=== PATIENT | female | born 1985 | race Hispanic/Latino ===

== ENCOUNTER 2018-05-15 17:20 | Emergency (ER) | payer SELFPAY ==
[~2018-05-15 17:20] MED LIST: ACET1TAB12 PO; BISA-72 PO; DULO30CA51 PO; GABA-529 PO; LEVO200T5 PO; LINA5TAB PO; METF750T2 PO; MIRALAX PO; NAPR-1192 PO; PRED20TA3 PO
[2018-05-15 18:18] LABS: BASOPHILS % (AUTO) 0.7 % (0.0-5.0); EOSINOPHILS % (AUTO) 3.1 % (0.0-8.0); HEMATOCRIT 41.5 % (36-48); LYMPHOCYTES % (AUTO) 24.8 % (21.0-51.0); MEAN CORPUSCULAR HEMOGLOBIN 30.2 pg (27.0-33.0); MEAN CORPUSCULAR HGB CONC 33.8 g/dL (32.0-36.0); MEAN CORPUSCULAR VOLUME 89.4 fL (79-99); MONOCYTES % (AUTO) 5.5 % (3.0-13.0); NEUTROPHILS % (AUTO) 65.9 % (40.0-77.0); PLATELET COUNT (AUTO) 234 K/uL (130-400); RED BLOOD CELL COUNT(AUTO) 4.64 MIL/uL (4.00-5.50); WHITE BLOOD COUNT (AUTO) 7.5 K/uL (4.8-10.8)
== END 2018-05-15 19:21 | disposition home or self-care (01) ==
LOC: EDH 17:20
DX: N93.8 Other specified abnormal uterine and vaginal bleeding (principal); E11.9 Type 2 diabetes mellitus without complications; Z85.850 Personal history of malignant neoplasm of thyroid; Z98.51 Tubal ligation status; Z72.0 Tobacco use
CPT/HCPCS: 36415; 84702; 85025; 86850; 86900; 86901

== ENCOUNTER 2018-08-21 22:38 | Emergency (ER) | payer OTHER ==
[2018-08-21 23:02] LABS: BASOPHILS % (AUTO) 3.7 % (0.0-5.0); EOSINOPHILS % (AUTO) 3.5 % (0.0-8.0); HEMATOCRIT 40.4 % (36-48); LYMPHOCYTES % (AUTO) 21.7 % (21.0-51.0); MEAN CORPUSCULAR HEMOGLOBIN 30.8 pg (27.0-33.0); MEAN CORPUSCULAR HGB CONC 34.2 g/dL (32.0-36.0); MEAN CORPUSCULAR VOLUME 89.9 fL (79-99); MONOCYTES % (AUTO) 4.9 % (3.0-13.0); NEUTROPHILS % (AUTO) 66.2 % (40.0-77.0); PLATELET COUNT (AUTO) 231 K/uL (130-400); RED BLOOD CELL COUNT(AUTO) 4.49 MIL/uL (4.00-5.50); RED CELL DISTRIBUTION WIDTH 14.2 % (11.0-15.5); WHITE BLOOD COUNT (AUTO) 7.1 K/uL (4.8-10.8)
[2018-08-21 23:19] LABS: B-TYPE NATRIURETIC PEPTIDE < 5 pg/mL (0-100)
[2018-08-21 23:23] LABS: ALBUMIN 4.1 g/dL (3.5-5.0); BILIRUBIN,TOTAL 0.4 mg/dL (0.2-1.0); TOTAL PROTEIN, SERUM 8.2 g/dL (6.0-8.3)
[2018-08-22 00:05] LABS: AMPHET/METH SCREEN,URINE NEGATIVE (NEGATIVE); BARBITURATE SCREEN, URINE NEGATIVE (NEGATIVE); BENZODIAZEPINES SCREEN,URINE NEGATIVE (NEGATIVE); CANNABINOID SCREEN,URINE POSITIVE (NEGATIVE); COCAINE SCREEN,URINE NEGATIVE (NEGATIVE); OPIATE SCREEN,URINE NEGATIVE (NEGATIVE); PHENCYCLIDINE SCREEN,URINE NEGATIVE (NEGATIVE)
== END 2018-08-22 01:35 | disposition home or self-care (01) ==
LOC: EDH 22:38
DX: R07.89 Other chest pain (principal); E11.9 Type 2 diabetes mellitus without complications; Z90.49 Acquired absence of other specified parts of digestive tract; Z98.890 Other specified postprocedural states; Z85.850 Personal history of malignant neoplasm of thyroid; Z72.0 Tobacco use
CPT/HCPCS: 36415; 71045; 80053; 80305; 82550; 83880; 84484; 85025; 93005

== ENCOUNTER 2019-01-01 20:57 | Emergency (ER) | payer SELFPAY ==
[~2019-01-01 20:57] MED LIST changes: -DULO30CA51 PO; +DULO30CA52 PO; -METF750T2 PO; +METF750T46 PO
[2019-01-01 21:39] LABS: APPEARANCE,URINE Clear (CLEAR); BILIRUBIN,URINE Negative (NEGATIVE); COLOR,URINE Yellow (YELLOW); GLUCOSE, URINE (UA) >=1000 mg/dL (NEGATIVE); KETONES,URINE Negative (NEGATIVE); LEUKOCYTE ESTERASE ,URINE Negative (NEGATIVE); NITRATE,URINE Negative (NEGATIVE); OCCULT BLOOD,URINE Nonhemolyzed Trace (NEGATIVE); PROTEIN,URINE Negative (NEGATIVE); UROBILINOGEN,URINE 0.2 mg/dL (0.2-1.0)
[2019-01-01 21:46] LABS: BACTERIA,URINE Rare /HPF (None Seen); WBC,URINE 0-1 /HPF (0-1); YEAST,URINE BUDDING Rare /HPF (None Seen)
[2019-01-01 21:47] LABS: SQUAMOUS EPITHELIAL CELL,UR Few /HPF (0-2)
[2019-01-01] MEDS ORDERED: ACETAMINOPHEN EXTRA STRENGTH 500 MG TABLET ONE (22:40)
[2019-01-01 22:53] LABS: BASOPHILS % (AUTO) 1.5 % (0.0-5.0); EOSINOPHILS % (AUTO) 2.2 % (0.0-8.0); HEMATOCRIT 41.5 % (36-48); MEAN CORPUSCULAR HEMOGLOBIN 30.3 pg (27.0-33.0); MEAN CORPUSCULAR HGB CONC 33.9 g/dL (32.0-36.0); MEAN CORPUSCULAR VOLUME 89.3 fL (79-99); MONOCYTES % (AUTO) 5.3 % (3.0-13.0); PLATELET COUNT (AUTO) 177 K/uL (130-400); RED BLOOD CELL COUNT(AUTO) 4.64 MIL/uL (4.00-5.50); RED CELL DISTRIBUTION WIDTH 14.5 % (11.0-15.5); WHITE BLOOD COUNT (AUTO) 6.7 K/uL (4.8-10.8)
[2019-01-01 22:55] LABS: AMPHET/METH SCREEN,URINE NEGATIVE (NEGATIVE); BARBITURATE SCREEN, URINE NEGATIVE (NEGATIVE); BENZODIAZEPINES SCREEN,URINE NEGATIVE (NEGATIVE); CANNABINOID SCREEN,URINE POSITIVE (NEGATIVE); COCAINE SCREEN,URINE NEGATIVE (NEGATIVE); OPIATE SCREEN,URINE NEGATIVE (NEGATIVE); PHENCYCLIDINE SCREEN,URINE NEGATIVE (NEGATIVE)
[2019-01-01 23:17] LABS: CREATININE 0.9 mg/dL (0.5-1.5); POTASSIUM 3.8 mmol/L (3.5-5.1)
[2019-01-01 23:21] LABS: ALBUMIN 3.7 g/dL (3.5-5.0); BILIRUBIN,TOTAL 0.4 mg/dL (0.2-1.0); TOTAL PROTEIN, SERUM 7.8 g/dL (6.0-8.3)
== END 2019-01-02 00:29 | disposition home or self-care (01) ==
LOC: EDH 20:57
DX: E11.65 Type 2 diabetes mellitus with hyperglycemia (principal); R53.1 Weakness; F12.10 Cannabis abuse, uncomplicated; F41.9 Anxiety disorder, unspecified; Z85.850 Personal history of malignant neoplasm of thyroid; Z72.0 Tobacco use
CPT/HCPCS: 36415; 70450; 80053; 80305; 81001; 81025; 85025

== ENCOUNTER 2019-06-15 13:21 | Emergency (ER) | payer MEDICAID | END 2019-06-15 14:21 | disposition home or self-care (01) | LOC: EDH 13:21 | DX: J20.9 Acute bronchitis, unspecified (principal) ==

== ENCOUNTER 2019-08-10 15:27 | Emergency (ER) | payer MEDICAID ==
[2019-08-10] MEDS ORDERED: CEFTRIAXONE SODIUM 1 GM ONE (15:59)
[2019-08-10] MEDS ORDERED: KETOROLAC TROMETHAMINE 60 MG/2 ML VIAL ONE (15:59)
[2019-08-10] MEDS ORDERED: LIDOCAINE HCL-MPF 1% 2ML VIAL ONE (16:00)
== END 2019-08-10 16:44 | disposition home or self-care (01) ==
LOC: EDH 15:27
DX: L03.211 Cellulitis of face (principal); E11.9 Type 2 diabetes mellitus without complications; Z90.49 Acquired absence of other specified parts of digestive tract; Z98.890 Other specified postprocedural states; Z72.0 Tobacco use; E07.9 Disorder of thyroid, unspecified; Z85.850 Personal history of malignant neoplasm of thyroid
CPT/HCPCS: 96372 ×2; 99284; J0696; J1885; J3490

== ENCOUNTER 2019-09-10 21:25 | Emergency (ER) | payer MEDICAID ==
[2019-09-10] MEDS ORDERED: ONDANSETRON HCL 4 MG/2 ML VIAL ONE (21:50)
[2019-09-10] MEDS ORDERED: SODIUM CHLORIDE 0.9% 1000ML 1,000 ML IV ONE (21:51)
[2019-09-10 22:12] LABS: BASOPHILS % (AUTO) 0.4 % (0.0-5.0); EOSINOPHILS % (AUTO) 1.9 % (0.0-8.0); HEMATOCRIT 41.2 % (36-48); LYMPHOCYTES % (AUTO) 21.5 % (21.0-51.0); MEAN CORPUSCULAR HEMOGLOBIN 27.6 pg (27.0-33.0); MEAN CORPUSCULAR HGB CONC 32.5 g/dL (32.0-36.0); MEAN CORPUSCULAR VOLUME 84.8 fL (79-99); MONOCYTES % (AUTO) 5.5 % (3.0-13.0); NEUTROPHILS % (AUTO) 69.7 % (40.0-77.0); PLATELET COUNT (AUTO) 263 K/uL (130-400); RED BLOOD CELL COUNT(AUTO) 4.86 MIL/uL (4.00-5.50); RED CELL DISTRIBUTION WIDTH 13.7 % (11.0-15.5); WHITE BLOOD COUNT (AUTO) 9.4 K/uL (4.8-10.8)
[2019-09-10 22:19] LABS: APPEARANCE,URINE Clear (CLEAR); BILIRUBIN,URINE Negative (NEGATIVE); COLOR,URINE Yellow (YELLOW); GLUCOSE, URINE (UA) >=1000 mg/dL (NEGATIVE); KETONES,URINE Negative (NEGATIVE); LEUKOCYTE ESTERASE ,URINE Negative (NEGATIVE); NITRATE,URINE Negative (NEGATIVE); OCCULT BLOOD,URINE Negative (NEGATIVE); PROTEIN,URINE Negative (NEGATIVE); UROBILINOGEN,URINE 0.2 mg/dL (0.2-1.0)
[2019-09-10 22:20] LABS: HCG,QUAL RESULT NEGATIVE (NEGATIVE)
[2019-09-10 22:23] LABS: CREATININE 0.8 mg/dL (0.5-1.5); POTASSIUM 3.6 mmol/L (3.5-5.1)
[2019-09-10 22:30] LABS: ALBUMIN 3.7 g/dL (3.5-5.0); BILIRUBIN,TOTAL 0.4 mg/dL (0.2-1.0); TOTAL PROTEIN, SERUM 7.7 g/dL (6.0-8.3)
[2019-09-10 23:05] LABS: BACTERIA,URINE None Seen /HPF (None Seen); RBC,URINE None Seen /HPF (0-1); SQUAMOUS EPITHELIAL CELL,UR Rare /HPF (0-2); WBC,URINE None Seen /HPF (0-1); YEAST,URINE BUDDING None Seen /HPF (None Seen)
== END 2019-09-11 00:15 | disposition home or self-care (01) ==
LOC: EDH 21:25
DX: F41.1 Generalized anxiety disorder (principal); E11.9 Type 2 diabetes mellitus without complications; D64.9 Anemia, unspecified; I10 Essential (primary) hypertension; Z90.49 Acquired absence of other specified parts of digestive tract; Z98.890 Other specified postprocedural states
CPT/HCPCS: 36415; 80053; 81001; 81025; 85025; 96374; 99283; J2405; J7030; 96372

== ENCOUNTER 2020-08-02 15:24 | Emergency (ER) | payer MEDICAID ==
[2020-08-02 16:32] LABS: BASOPHILS % (AUTO) 0.4 % (0.0-5.0); CREATININE 0.8 mg/dL (0.5-1.5); EOSINOPHILS % (AUTO) 1.7 % (0.0-8.0); HEMATOCRIT 42.6 % (36-48); LYMPHOCYTES % (AUTO) 19.8 % (21.0-51.0); MEAN CORPUSCULAR HEMOGLOBIN 28.6 pg (27.0-33.0); MEAN CORPUSCULAR HGB CONC 32.4 g/dL (32.0-36.0); MEAN CORPUSCULAR VOLUME 88.4 fL (79-99); MONOCYTES % (AUTO) 5.3 % (3.0-13.0); NEUTROPHILS % (AUTO) 71.6 % (40.0-77.0); PLATELET COUNT (AUTO) 240 K/uL (130-400); RED BLOOD CELL COUNT(AUTO) 4.82 MIL/uL (4.00-5.50); RED CELL DISTRIBUTION WIDTH 12.6 % (11.0-15.5); WHITE BLOOD COUNT (AUTO) 11.8 K/uL (4.8-10.8)
[2020-08-02 16:47] LABS: ALBUMIN 3.8 g/dL (3.5-5.0); BILIRUBIN,TOTAL 0.2 mg/dL (0.2-1.0); TOTAL PROTEIN, SERUM 7.3 g/dL (6.0-8.3)
[2020-08-02 17:04] LABS: APPEARANCE,URINE Clear (CLEAR); BILIRUBIN,URINE Negative (NEGATIVE); COLOR,URINE Yellow (YELLOW); GLUCOSE, URINE (UA) >=1000 mg/dL (NEGATIVE); KETONES,URINE Negative (NEGATIVE); LEUKOCYTE ESTERASE ,URINE Negative (NEGATIVE); NITRATE,URINE Negative (NEGATIVE); OCCULT BLOOD,URINE Negative (NEGATIVE); PH,URINE 6.5 (5.0-8.0); PROTEIN,URINE Negative (NEGATIVE)
[2020-08-02 17:39] LABS: BACTERIA,URINE Few /HPF (None Seen); RBC,URINE None Seen /HPF (0-1); SQUAMOUS EPITHELIAL CELL,UR 0-2 /HPF (0-2); WBC,URINE 0-1 /HPF (0-1)
== END 2020-08-02 18:33 | disposition home or self-care (01) ==
LOC: EDH 15:24
DX: F41.9 Anxiety disorder, unspecified (principal); R06.00 Dyspnea, unspecified; R42 Dizziness and giddiness; R09.81 Nasal congestion; Z20.822 Contact with and (suspected) exposure to COVID-19; I10 Essential (primary) hypertension; E11.9 Type 2 diabetes mellitus without complications; E66.9 Obesity, unspecified; E07.9 Disorder of thyroid, unspecified; Z72.0 Tobacco use; Z90.49 Acquired absence of other specified parts of digestive tract; Z98.890 Other specified postprocedural states
CPT/HCPCS: 36415; 71045; 80053; 81001; 84443; 84484; 85025; 85378; 87426; 93005; 99285; U0003

== ENCOUNTER 2021-04-13 14:26 | Emergency (ER) | payer MEDICAID ==
[~2021-04-13] VITALS: Ht 175.3 cm; Wt 124.3 kg
[2021-04-13] MEDS ORDERED: ACETAMINOPHEN 500 MG TABLET PO ONE (15:00)
[2021-04-13 16:23] LABS: INFLUENZA TYPE A NEGATIVE FOR TYPE A (NEG); INFLUENZA TYPE B NEGATIVE FOR TYPE B (NEG)
[2021-04-13] MEDS ORDERED: AMOX-429 PO (16:38)
[2021-04-13] MEDS ORDERED: FLUT16H NASAL (16:38)
[2021-04-13] MEDS ORDERED: LORA10TA7 PO (16:38)
[2021-04-13 16:56] VITALS: BP 138/101
== END 2021-04-13 17:02 | disposition home or self-care (01) ==
LOC: EDH 14:26
DX: J32.1 Chronic frontal sinusitis (principal); E11.9 Type 2 diabetes mellitus without complications; Z90.49 Acquired absence of other specified parts of digestive tract; Z98.890 Other specified postprocedural states; Z79.84 Long term (current) use of oral hypoglycemic drugs; Z79.899 Other long term (current) drug therapy
CPT/HCPCS: 87635; 87804 ×2; 87880; 99283; C9803

== ENCOUNTER 2022-10-14 08:36 | Observation (INO) | payer MEDICAID ==
[~2022-10-14] VITALS: Ht 175.3 cm; Wt 79.1 kg
[~2022-10-14 08:36] MED LIST changes: +AMOX-429 PO; +FLUT16H NASAL; +LORA10TA7 PO
[2022-10-14] MEDS ORDERED: METOCLOPRAMIDE 10 MG/2 ML VIAL IVP ONE (09:30)
[2022-10-14] MEDS ORDERED: KETOROLAC 30MG VIAL (30MG/ML) IVP ONE (09:30)
[2022-10-14] MEDS ORDERED: DIAZEPAM 5 MG/ML 2 ML SYG IVP ONE (09:30)
[2022-10-14] MEDS ORDERED: FAMOTIDINE 20MG VIAL IV ONE (09:30)
[2022-10-14] MEDS ORDERED: PREG25 PO (10:53)
[2022-10-14] MEDS ORDERED: MELO-106 PO (10:53)
[2022-10-14] MEDS ORDERED: CYCL10TA16 PO (10:53)
[2022-10-14] MEDS ORDERED: GLUCAGON 1MG KIT 1 MG ML IM PRN (12:00)
[2022-10-14] MEDS ORDERED: POTASSIUM CHLORIDE 20MEQ/100ML 100 ML IV PRN ×2 (12:00)
[2022-10-14] MEDS ORDERED: POLYETHYLENE GLYCOL 3350 17 GM POWD.PACK PO PRN (12:00)
[2022-10-14] MEDS ORDERED: DIPHENHYDRAMINE HCL 25 MG CAPSULE PO PRN (12:00)
[2022-10-14] MEDS ORDERED: BENZOCAINE/MENTH/CETYLPYRD CL 1 EACH LOZENGE MM PRN (12:00)
[2022-10-14] MEDS ORDERED: LACTULOSE 20 GM/30 ML UDCUP PO PRN (12:00)
[2022-10-14] MEDS ORDERED: ALPRAZOLAM 0.5 MG TABLET PO PRN (12:00)
[2022-10-14] MEDS ORDERED: DOCUSATE SODIUM 100 MG CAP PO PRN (12:00)
[2022-10-14] MEDS ORDERED: HYDRALAZINE 25MG TABLET PO PRN (12:00)
[2022-10-14] MEDS ORDERED: ACETAMINOPHEN 325 MG TAB PO PRN ×2 (12:00)
[2022-10-14] MEDS ORDERED: LOPERAMIDE HCL 2 MG CAP PO PRN (12:00)
[2022-10-14] MEDS ORDERED: POTASSIUM CHLORIDE 10% ELIXIR 20 MEQ/15 ML UDCUP PO PRN (12:00)
[2022-10-14] MEDS ORDERED: GUAIFENESIN SUGAR-FREE 100 MG/5 ML UDCUP PO PRN (12:00)
[2022-10-14] MEDS ORDERED: DEXTROSE 50%-WATER 50 ML DISP.SYRIN IV PRN (12:00)
[2022-10-14] MEDS ORDERED: ONDANSETRON 4MG INJ IV PRN (12:00)
[2022-10-14] MEDS ORDERED: DiphenhydrAMINE HCL 50 MG/ML VIAL IV PRN (12:00)
[2022-10-14] MEDS ORDERED: ALBUTEROL 0.083% 2.5 MG/3 ML INH IH PRN (12:00)
[2022-10-14 12:22] LABS: BASOPHILS % (AUTO) 0.4 % (0.0-5.0); HEMATOCRIT 39.2 % (36-48); LYMPHOCYTES % (AUTO) 22.6 % (21.0-51.0); MEAN CORPUSCULAR HEMOGLOBIN 24.4 pg (27.0-33.0); MEAN CORPUSCULAR HGB CONC 30.6 g/dL (32.0-36.0); MEAN CORPUSCULAR VOLUME 79.8 fL (79-99); MONOCYTES % (AUTO) 5.4 % (3.0-13.0); NEUTROPHILS % (AUTO) 68.1 % (40.0-77.0); PLATELET COUNT (AUTO) 250 K/uL (130-400); RED BLOOD CELL COUNT(AUTO) 4.91 MIL/uL (4.00-5.50); RED CELL DISTRIBUTION WIDTH 16.6 % (11.0-15.5); WHITE BLOOD COUNT (AUTO) 9.3 K/uL (4.8-10.8)
[2022-10-14 12:45] LABS: ALBUMIN 3.6 g/dL (3.5-5.0); CREATININE 0.7 mg/dL (0.5-1.5); PHOSPHORUS 3.8 mg/dL (2.5-4.9)
[2022-10-14 12:46] LABS: MAGNESIUM 1.7 mg/dL (1.80-2.40); TOTAL PROTEIN, SERUM 7.4 g/dL (6.0-8.3)
[2022-10-14] MEDS: MAGNESIUM 2GM PREMIX 50ML 50 ML IV PRN (13:40)
[2022-10-14 15:12] VITALS: BP 146/89; PULSE 67; RESP 18
[2022-10-14 16:00] VITALS: BP 129/71; PULSE 65; RESP 20
[2022-10-14 20:00] VITALS: BP 142/83; PULSE 74; RESP 18
[2022-10-14] MEDS: FAMOTIDINE 20MG TAB PO SCH (21:17)
[2022-10-14] MEDS: HYDROCODONE/ACETAMINOPHEN 5/325 MG TAB PO PRN (21:18)
[2022-10-14] MEDS ORDERED: HYDROCODONE/ACETAMINOPHEN 5/325 MG TAB PO PRN (21:30)
[2022-10-15] VITALS (9 sets, daily range): BP systolic 117–155; BP diastolic 55–102; PULSE 58–89; RESP 18–20
[2022-10-15 04:50] LABS: BASOPHILS % (AUTO) 0.5 % (0.0-5.0); MEAN CORPUSCULAR HEMOGLOBIN 24.4 pg (27.0-33.0); MEAN CORPUSCULAR HGB CONC 30.6 g/dL (32.0-36.0); MEAN CORPUSCULAR VOLUME 79.9 fL (79-99); MONOCYTES % (AUTO) 5.9 % (3.0-13.0); NEUTROPHILS % (AUTO) 59.1 % (40.0-77.0); PLATELET COUNT (AUTO) 200 K/uL (130-400); RED BLOOD CELL COUNT(AUTO) 4.38 MIL/uL (4.00-5.50); RED CELL DISTRIBUTION WIDTH 16.3 % (11.0-15.5); WHITE BLOOD COUNT (AUTO) 7.5 K/uL (4.8-10.8)
[2022-10-15 05:09] LABS: CREATININE 0.7 mg/dL (0.5-1.5); POTASSIUM 3.5 mmol/L (3.5-5.1); TOTAL PROTEIN, SERUM 6.3 g/dL (6.0-8.3)
[2022-10-15] MEDS: HYDROCODONE/ACETAMINOPHEN 5/325 MG TAB PO PRN ×2 (07:49→17:16)
[2022-10-15] MEDS: FAMOTIDINE 20MG TAB PO SCH ×2 (07:49→22:33)
[2022-10-15] MEDS: KCL 20 MEQ ERTAB PO PRN ×2 (07:50→22:34)
[2022-10-15] MEDS: INSULIN HUMULIN R 100 UNIT/ML 3ML SQ SCH ×3 (11:30→21:00)
[2022-10-15] MEDS ORDERED: MORPHINE 4 MG SYG IVP PRN (12:00)
[2022-10-16] MEDS: HYDROCODONE/ACETAMINOPHEN 5/325 MG TAB PO PRN ×2 (00:17→06:05)
[2022-10-16 04:08] VITALS: BP 131/80; PULSE 67; RESP 18
[2022-10-16 04:37] LABS: MAGNESIUM 1.8 mg/dL (1.80-2.40); POTASSIUM 3.8 mmol/L (3.5-5.1)
[2022-10-16] MEDS: INSULIN HUMULIN R 100 UNIT/ML 3ML SQ SCH ×2 (05:39→11:30)
[2022-10-16] MEDS: MAGNESIUM 2GM PREMIX 50ML 50 ML IV PRN (05:51)
[2022-10-16] MEDS ORDERED: LEVOTHYROXINE 150 MCG TABLET PO SCH (06:30)
[2022-10-16 07:50] LABS: HEMATOCRIT 36.7 % (36-48); MEAN CORPUSCULAR HEMOGLOBIN 24.4 pg (27.0-33.0); MEAN CORPUSCULAR HGB CONC 30.8 g/dL (32.0-36.0); MEAN CORPUSCULAR VOLUME 79.1 fL (79-99); RED BLOOD CELL COUNT(AUTO) 4.64 MIL/uL (4.00-5.50); RED CELL DISTRIBUTION WIDTH 16.5 % (11.0-15.5); WHITE BLOOD COUNT (AUTO) 7.3 K/uL (4.8-10.8)
[2022-10-16 07:56] LABS: CREATININE 0.7 mg/dL (0.5-1.5); POTASSIUM 3.9 mmol/L (3.5-5.1)
[2022-10-16 08:17] VITALS: BP 127/64; PULSE 63; RESP 18
[2022-10-16] MEDS: FAMOTIDINE 20MG TAB PO SCH (08:51)
[2022-10-16 12:00] VITALS: BP 158/91; PULSE 74; RESP 18
[2022-10-16] MEDS ORDERED: GABA-529 PO (13:09)
[2022-10-16] MEDS ORDERED: METH4TAB3 PO (13:09)
== END 2022-10-16 15:00 | disposition home or self-care (01) ==
LOC: EDH 08:36 → EDHIP 08:37 → 3BH 14:45
PROVIDERS: ADMIT Hospitalist; ATTEND Hospitalist
DX: M47.817 Spondylosis without myelopathy or radiculopathy, lumbosacral region (principal); E11.65 Type 2 diabetes mellitus with hyperglycemia; M51.16 Intervertebral disc disorders with radiculopathy, lumbar region; M51.26 Other intervertebral disc displacement, lumbar region; R20.0 Anesthesia of skin; E89.0 Postprocedural hypothyroidism; E66.3 Overweight; E66.9 Obesity, unspecified; G47.00 Insomnia, unspecified; K59.00 Constipation, unspecified; M21.379 Foot drop, unspecified foot; F17.210 Nicotine dependence, cigarettes, uncomplicated; F12.90 Cannabis use, unspecified, uncomplicated; Z68.25 Body mass index [BMI] 25.0-25.9, adult; Z90.89 Acquired absence of other organs; Z79.84 Long term (current) use of oral hypoglycemic drugs; Z85.850 Personal history of malignant neoplasm of thyroid; Z79.899 Other long term (current) drug therapy; Z98.890 Other specified postprocedural states; Z90.49 Acquired absence of other specified parts of digestive tract
CPT/HCPCS: 96376; 96375; 99285; 83735 ×2; 84100; 80053 ×2; 85025 ×2; 85378; 82948 ×7; 36415 ×3; 72131; 94664; 84443; 71111; 72148; 96365; 96366; 84132; 80048; 85027; G0378 ×44; J3475 ×2; S0028; J3360; J1885; J2765; J3490

== ENCOUNTER 2023-11-28 18:56 | Emergency (ER) | payer SELFPAY ==
[~2023-11-28] VITALS: Ht 175.3 cm; Wt 127.0 kg
[~2023-11-28 18:56] MED LIST changes: -ACET1TAB12 PO; -AMOX-429 PO; -BISA-72 PO; +CYCL10TA16 PO; -DULO30CA52 PO; -FLUT16H NASAL; -LEVO200T5 PO; -LINA5TAB PO; -LORA10TA7 PO; +MELO-106 PO; -METF750T46 PO; +METH4TAB3 PO; -MIRALAX PO; -NAPR-1192 PO; -PRED20TA3 PO
[2023-11-28] MEDS: MORPHINE 4 MG SYG IVP ONE (20:01)
[2023-11-28 20:17] LABS: CREATININE 0.8 mg/dL (0.5-1.0); POTASSIUM 3.5 mmol/L (3.5-5.1)
[2023-11-28] MEDS: KETOROLAC 15MG/ML VIAL (15MG/ML) IV ONE (22:22)
[2023-11-28 23:39] VITALS: BP 140/55; PULSE 69; RESP 16; O2SAT 98
== END 2023-11-28 23:55 | disposition home or self-care (01) ==
LOC: EDH 18:56
DX: M48.061 Spinal stenosis, lumbar region without neurogenic claudication (principal); M79.604 Pain in right leg; E03.9 Hypothyroidism, unspecified; E11.9 Type 2 diabetes mellitus without complications; D64.9 Anemia, unspecified; M47.814 Spondylosis without myelopathy or radiculopathy, thoracic region; Z79.899 Other long term (current) drug therapy; Z85.850 Personal history of malignant neoplasm of thyroid; Z90.49 Acquired absence of other specified parts of digestive tract; Z98.890 Other specified postprocedural states
CPT/HCPCS: 99285; 72129; 96374; 96375; 80048; 36415; 72132; J2270; J1885

== ENCOUNTER 2023-12-02 10:48 | Emergency (ER) | payer MEDICAID ==
[~2023-12-02] VITALS: Ht 175.3 cm; Wt 127.0 kg
--- NOTE | 2023-12-02 11:18 | ERN ---
General Chief Complaint: Lower Extremity Pain/Injury Stated Complaint: RIGHT SCIATICA PAIN Time Seen by MD: 10:49 Source: patient History of Present Illness Initial Comments Patient is a 38-year-old female here for evaluation for right lower extremity numbness and discomfort. Patient states that she was here recently they did a CT of her spine and told her she had severe stenosis. Patient also states she has a sense of history of back issues with surgical evaluation and decompression of the past. Patient also states she had not been able to follow up with the PCP or neurosurgeon as indicated due to financial reasons. Allergies: Coded Allergies: No Known Drug Allergies (Verified Allergy, Unknown, 02/24/17) Home Meds Active Scripts Methylprednisolone (Medrol) 4 Mg Tab.ds.pk, 4 MG PO DAILY for 7 Days, #1 PACK 0 Refills Prov:NYLA ORLANDOP 10/16/22 Gabapentin (Gabapentin) 100 Mg Capsule, 100 MG PO TID for 30 Days, #90 CAP 0 Re fills Prov:NYLA ORLANDO 10/16/22 Cyclobenzaprine HCl (Flexeril) 10 Mg Tab, 10 MG PO TID for muscle sstiffness, #30 TAB 2 Refills Prov:MICHAEL MILLER Sr., MD 10/14/22 Meloxicam (Meloxicam) 7.5 Mg Tablet, 7.5 MG PO DAILY, #30 TAB 2 Refills Prov:MICHAEL MILLER Sr., MD 10/14/22 Past Medical History Past Medical History: Anemia, Diabetes-Type II, Hypothyroid Medical History Other: THYROID CANCER. STENOSIS Past Surgical History: Appendectomy, Cholecystectomy, None, Surgical History Other: LAMINECTOMY, THYROID Female( History) LMP: Nov 08, 2023 ROS Dictation All pertinent systems reviewed, negative except as documented in the HPI The ROS is obtained from 38-year-old female GENERAL/CONSTITUTIONAL: Negative except as documented in HPI. ENT: Negative except as documented in HPI. CARDIOVASCULAR: Negative except as documented in HPI. RESPIRATORY: Negative except as documented in HPI. GASTROINTESTINAL: Negative except as documented in HPI. GENITOURINARY: Negative except as documented in HPI. MUSCULOSKELETAL: Negative except as documented in HPI. SKIN: Negative except as documented in HPI. NEUROLOGIC: Negative except as documented in HPI. Physical Exam Physical Exam Dictation VITAL SIGNS: note is made of triage vital signs CONSTITUTIONAL: This is 38-year-old female patient who is [awake, alert, and appropriately interactive.] HEAD: [Normocephalic, Atraumatic.] EYES: [Periorbital areas with no swelling, redness, or edema. Lids and lashes are normal. Conjunctival injection is absent. Sclera anicteric. Pupils equal, round, reactive to light.] ENT: [No nasal discharge noted.] Posterior pharynx is [without exudate, redness, swelling, masses, or evidence of obstruction.] [Uvula midline.] Mucous membranes [moist.] NECK: [Trachea midline, no masses palpated, and no cervical lymphadenopathy.] [No swelling.] [Supple, full range of motion without nuchal rigidity.] [No vertebral point tenderness.] [No meningismus.] CHEST/AXILLA: [Normal chest wall appearance and motion.] [No tenderness.] [No crepitus.] CV: [Normal rate, regular rhythm. No murmur. No edema.] RESPIRATORY:[Respiratory rate is normal. ] [Bilateral equal breath sounds with good airflow.] [Normal breath sounds are noted. No rales, rhonchi or wheezes noted.] [No increased work of breathing, no retractions.] ABDOMEN: [Inspection normal. No distention is appreciated. Bowel sounds are normal. No mass or organomegaly is appreciated. There is no tenderness. No rebound. No rigidity. No voluntary or involuntary guarding.] BACK: [Inspection is normal. No midline tenderness is appreciated. The patient appears comfortable when moving.] : [No CVA tenderness or bladder tenderness.] SKIN: [Warm, dry, with normal turgor.] Capillary refill [less than 3 seconds.] [Normal color].[No rash.] [No cellulitis or abscess.] [No evidence of acute injury.] MS/Extremity: There is no calf tenderness. [Baseline range of motion is noted in all 4 extremities]. There [are no deformities.] NEURO: [Awake and alert, lucid.] [Facies symmetric and speech is clear.] [Motor strength 5/5 in all extremities.] [Sensory grossly intact.] PSYCH: [Patient is appropriately attentive and cooperative without evidence of hallucination.] Results Laboratory and Microbiology Lab and Micro Result Laboratory Tests Test 12/02/23 11:23 12/02/23 11:30 White Blood Count 7.4 K/uL (4.8-10.8) Red Blood Count 4.16 MIL/uL (4.00-5.50) Hemoglobin 10.3 g/dL (12.0-16.0) L Hematocrit 33.6 % (36-48) L Mean Corpuscular Volume 80.8 fL (79-99) Mean Corpuscular Hemoglobin 24.8 pg (27.0-33.0) L Mean Corpuscular Hemoglobin Concent 30.7 g/dL (32.0-36.0) L Red Cell Distribution Width 17.9 % (11.0-15.5) H Platelet Count 234 K/uL (130-400) Mean Platelet Volume 9.4 fL (7.5-10.5) Immature Granulocyte % (Auto) 1.1 % (0-1) H Neutrophils (%) (Auto) 70.8 % (40.0-77.0) Lymphocytes (%) (Auto) 19.7 % (21.0-51.0) L Monocytes (%) (Auto) 5.0 % (3.0-13.0) Eosinophils (%) (Auto) 3.0 % (0.0-8.0) Basophils (%) (Auto) 0.4 % (0.0-5.0) Neutrophils # (Auto) 5.2 K/uL (1.8-7.7) Lymphocytes # (Auto) 1.5 K/uL (1.0-4.8) Monocytes # (Auto) 0.4 K/uL (0.1-1.0) Eosinophils # (Auto) 0.22 K/uL (0.00-0.70) Basophils # (Auto) 0.03 K/uL (0.00-0.20) Absolute Immature Granulocyte (auto 0.08 K/uL (0-1) Nucleated Red Blood Cells 0.0 % (0.0-0.19) Red Blood Cell Morphology See comments Sodium Level 134 mmol/L (136-145) L Potassium Level 4.3 mmol/L (3.5-5.1) Chloride Level 101 mmol/L (101-111) Carbon Dioxide Level 27 mmol/L (21-32) Blood Urea Nitrogen 11 mg/dL (7-18) Creatinine 0.8 mg/dL (0.5-1.0) Glomerular Filtration Rate Calc 95 mL/min (>90) Random Glucose 166 mg/dL (70-105) H Total Calcium 9.9 mg/dL (8.5-10.1) Total Creatine Kinase 248 U/L (21-232) #H Urine Color LIGHT-YELLOW (YELLOW) Urine Appearance CLOUDY (CLEAR) H Urine pH 5.0 (5.0-8.0) Urine Specific [place] 1.016 (1.001-1.031) Urine Protein NEGATIVE mg/dL (NEGATIVE) Urine Glucose (UA) NEGATIVE mg/dL (NEGATIVE) Urine Ketones NEGATIVE mg/dL (NEGATIVE) Urine Occult Blood SMALL (NEGATIVE) H Urine Nitrate NEGATIVE (NEGATIVE) Urine Bilirubin NEGATIVE mg/dL (NEGATIVE) Urine Urobilinogen 0.2 mg/dL (0.2-1.0) Urine Leukocyte Esterase NEGATIVE Arnold/uL Urine RBC 2-5 /HPF (0-1) H Urine WBC 6-10 /HPF (0-1) H Urine Squamous Epithelial Cells MANY /HPF (0-2) Urine Bacteria MOD /HPF (None Seen) Urine Other Casts 1 /LPF (None Seen) Urine HCG, Qualitative NEGATIVE (NEGATIVE) Labs Reviewed?: Yes EKG/XRAY/US/CT/MRI CT Scan Comment IMAGING REPORT Signed PATIENT: KATIANA HOLLOWAY MR#: [id number] : 1985 SEX: F AGE: 38 LOCATION: [facility] ORDER 1217 STATUS: [facility] REPORT#: [id number] SERVICE 1216 REASON: back pain ORDERING PHYSICIAN: SHY REDD MD PROCEDURE: L SPIN WO - CT LUMBAR SPINE W/O CONTRAST Exam Type: CT LUMBAR SPINE W/O CONTRAST Clinical Information: back pain Comparison: None Technique: Spiral axial images were performed from T12 to the sacral level. Both sagittal and coronal reconstructions were performed. CT Dose Index (CTDI): 59.14 mGy Dose Length Product (DLP): 1953.1 total Findings: There is straightening of the normal lumbar lordosis consistent with spasm. There are no fractures. No facet hypertrophy. The prevertebral soft tissues are normal. Central zone disc protrusions at L3-4, L4-5 and L5-S1 causing bilateral neural foraminal narrowing and nerve root impingement. Impression: Central zone disc protrusions at L3-4, L4-5 and L5-S1 causing bilateral neural foraminal narrowing and nerve root impingement. Lumbar spasm. DICTATED BY: EVE ALDANA MD DATE: 12/02/23 1317 ELECTRONICALLY SIGNED BY: EVE ALDANA MD DATE: 12/02/23 1330 [facility] [I have reviewed additional NN, repeat VS, and monitoring where indicated.] Heart rate, blood pressure, and O2 saturation are acceptable. Adkins diagnostic results: [none] Other independent historian: [none] Review of external data: [None.] Interventions: [None] Reassessment: [Not indicated.] Final diagnostic impression:[ ] I discussed my findings, clinical impression and treatment recommendations with [the patient.] My final plan for disposition was made based upon -[mild] risk of complications and potential morbidity of the patient's condition. -discussion with [the patient/surrogate] regarding management options. -consideration of the medical or social issues impacting the disposition[ ]. [-consultation with] Patient is a 38-year-old female coming into evaluated for lower extremity numbness and weakness. Patient states this been ongoing for several years. Patient has a history of spinal surgery. Patient was advised to follow-up with neurosurgeon but states she has not done so. Patient was seen here for Sam's he still has not been able to follow up with the neurosurgeon. Patient does show impingement on CT steroids were provided I advised her to follow up as soon as possible with neurosurgeon as indicated in the past. ED Course Orders Procedure Category Date Status Time Cbc With Differential LAB 12/02/23 Complete 11:14 Basic Metabolic Panel LAB 12/02/23 Complete 11:14 Urinalysis LAB 12/02/23 Complete W/Microscopic 11:14 Creatine Kinase, Total LAB 12/02/23 Complete 11:14 ,Urine Test LAB 12/02/23 Complete 11:16 Culture Urine LYDIA 12/02/23 In Process 12:30 Ct Lumbar Spine W/O CT 12/02/23 Resulted Contrast 12:16 Triamcinolone Acet PHA 12/02/23 Transmitted 40mg/Ml 1ml (Kenalog 14:00 Orphenadrine Citrate PHA 12/02/23 Verified (Norflex) 14:00 Vital Signs Date Time Temp Pulse Resp B/P (MAP) Pulse Ox O2 Delivery O2 Flow Rate FiO2 12/02/23 11:24 97.9 88 18 155/88 100 Room Air* 0 21 12/02/23 10:49 97.9 81 16 155/88 100 Room Air 0 DX & DISP Disposition: Discharge Departure Impression: Primary Impression: Central stenosis of spinal canal Additional Impression: Right sided sciatica Condition: Stable Additional Instructions: Please follow-up with your primary care provider [within 1 to 2 days.] Take [medications as indicated.] [You may take Tylenol or ibuprofen as needed for pain or fever.] Return to the emergency department for fever, nausea, vomiting, diarrhea, chest pain, or shortness of breath. Continue any home medications. Referrals: NONE (PCP) KISHOR COTE MD, LUIS A MD Time of Disposition: 14:04 SHY REDD MD Dec 02, 2023 11:18
[2023-12-02 11:28] LABS: BASOPHILS # (AUTO) 0.03 K/uL (0.00-0.20); BASOPHILS % (AUTO) 0.4 % (0.0-5.0); EOSINOPHILS # (AUTO) 0.22 K/uL (0.00-0.70); HEMATOCRIT 33.6 % (36-48); IMMATURE GRANULOCYTE ABSOLUTE 0.08 K/uL (0-1); LYMPHOCYTES # (AUTO) 1.5 K/uL (1.0-4.8); LYMPHOCYTES % (AUTO) 19.7 % (21.0-51.0); MEAN CORPUSCULAR HEMOGLOBIN 24.8 pg (27.0-33.0); MEAN CORPUSCULAR HGB CONC 30.7 g/dL (32.0-36.0); MEAN CORPUSCULAR VOLUME 80.8 fL (79-99); MONOCYTES # (AUTO) 0.4 K/uL (0.1-1.0); NEUTROPHILS # (AUTO) 5.2 K/uL (1.8-7.7); NEUTROPHILS % (AUTO) 70.8 % (40.0-77.0); PLATELET COUNT (AUTO) 234 K/uL (130-400); RED BLOOD CELL COUNT(AUTO) 4.16 MIL/uL (4.00-5.50); RED CELL DISTRIBUTION WIDTH 17.9 % (11.0-15.5); WHITE BLOOD COUNT (AUTO) 7.4 K/uL (4.8-10.8)
[2023-12-02 11:48] LABS: CREATININE 0.8 mg/dL (0.5-1.0); POTASSIUM 4.3 mmol/L (3.5-5.1)
[2023-12-02 12:03] LABS: APPEARANCE,URINE CLOUDY (CLEAR); BILIRUBIN,URINE NEGATIVE (NEGATIVE); COLOR,URINE LIGHT-YELLOW (YELLOW); GLUCOSE, URINE (UA) NEGATIVE (NEGATIVE); KETONES,URINE NEGATIVE (NEGATIVE); LEUKOCYTE ESTERASE ,URINE NEGATIVE Leu/uL (NEGATIVE); NITRATE,URINE NEGATIVE (NEGATIVE); OCCULT BLOOD,URINE SMALL (NEGATIVE); PROTEIN,URINE NEGATIVE (NEGATIVE); UROBILINOGEN,URINE 0.2 mg/dL (0.2-1.0)
[2023-12-02 12:29] LABS: BACTERIA,URINE MOD /HPF (None Seen); MUCUS,URINE RARE LPF (None Seen); OTHER CASTS, URINE 1 /LPF (None Seen); SQUAMOUS EPITHELIAL CELL,UR MANY /HPF (0-2)
--- NOTE | 2023-12-02 13:30 | HMCIMG ---
Exam Type: CT LUMBAR SPINE W/O CONTRAST Clinical Information: back pain Comparison: None Technique: Spiral axial images were performed from T12 to the sacral level. Both sagittal and coronal reconstructions were performed. CT Dose Index (CTDI): 59.14 mGy Dose Length Product (DLP): 1953.1 total Findings: There is straightening of the normal lumbar lordosis consistent with spasm. There are no fractures. No facet hypertrophy. The prevertebral soft tissues are normal. Central zone disc protrusions at L3-4, L4-5 and L5-S1 causing bilateral neural foraminal narrowing and nerve root impingement. Impression: Central zone disc protrusions at L3-4, L4-5 and L5-S1 causing bilateral neural foraminal narrowing and nerve root impingement. Lumbar spasm.
[2023-12-02] MEDS ORDERED: PRED5TAB PO (14:07)
[2023-12-02] MEDS ORDERED: METH-662 PO (14:07)
[2023-12-02] MEDS: ORPHENADRINE 60MG/2ML IM ONE (14:28)
[2023-12-02] MEDS: TRIAMCINOLONE ACETONIDE 40 MG/ML 1ML VIAL IM ONE (14:28)
[2023-12-02 14:37] VITALS: BP 138/74; PULSE 82; RESP 18; TEMP 97.9; O2SAT 100
== END 2023-12-02 14:53 | disposition home or self-care (01) ==
LOC: EDH 10:48
DX: M48.061 Spinal stenosis, lumbar region without neurogenic claudication (principal); M51.17 Intervertebral disc disorders with radiculopathy, lumbosacral region; Z79.899 Other long term (current) drug therapy
CPT/HCPCS: 99285; 72131; 82550; 80048; 85025; 87086 ×2; 87186; 81001; 81025; 36415; 96372 ×2; J3301; J2360

== ENCOUNTER 2025-01-06 09:14 | Emergency (ER) | payer BC, MEDICAID ==
[~2025-01-06] VITALS: Ht 175.3 cm; Wt 116.6 kg
[~2025-01-06 09:14] MED LIST changes: +METH-662 PO; +PRED5TAB PO
[2025-01-06 09:58] LABS: ADD UA MICROSCOPIC YES; APPEARANCE,URINE CLEAR (CLEAR); GLUCOSE, URINE (UA) NEGATIVE (NEGATIVE); LEUKOCYTE ESTERASE ,URINE 75 Leu/uL (NEGATIVE); NITRATE,URINE NEGATIVE (NEGATIVE); OCCULT BLOOD,URINE SMALL (NEGATIVE)
[2025-01-06 10:05] LABS: SQUAMOUS EPITHELIAL CELL,UR RARE /HPF (0-2)
--- NOTE | 2025-01-06 10:38 | ERN ---
General Chief Complaint: Painful Urination Stated Complaint: BURNING WITH URINATION Time Seen by MD: 09:18 History of Present Illness Initial Comments 39-year-old female, diabetic, obese, presents or dysuria. Patient reports some vaginal irritation and dysuria that has been increasing over the last month or so. She was treated with the an oral dose of fluconazole for possible yeast infection, but she reports that symptoms are not improving. No flank pain, no back pain no suprapubic pain. She does report increased urinary frequency. No vomiting or fevers. No lesions. Low risk for STI per patient. Denies . Allergies: Coded Allergies: No Known Drug Allergies (Verified Allergy, Unknown, 02/24/17) Home Meds Active Scripts Nitrofurantoin/Nitrofuran Mac (Macrobid) 100 Mg Cap, 1 CAP PO BID for 7 Days, #14 CAP 0 Refills Prov:AMOS FERRRAO DO 01/06/25 Metronidazole (Metronidazole) 500 Mg Tablet, 1 TAB PO BID for 7 Days, #14 TAB 0 Refills Prov:AMOS FERRARO DO 01/06/25 Methocarbamol (Robaxin) 750 Mg Tab, 500 MG PO BID for 5 Days, #10 TAB Prov:SHY REDD MD 12/02/23 Prednisone (Prednisone) 5 Mg Tablet, 5 MG PO DAILY for 10 Days, #10 TAB Prov:SHY REDD MD 12/02/23 Methylprednisolone (Medrol) 4 Mg Tab.ds.pk, 4 MG PO DAILY for 7 Days, #1 PACK 0 Refills Prov:NYLA ORLANDOP 10/16/22 Gabapentin (Gabapentin) 100 Mg Capsule, 100 MG PO TID for 30 Days, #90 CAP 0 Refills Prov:NYLA ORLANDOP 10/16/22 Cyclobenzaprine HCl (Flexeril) 10 Mg Tab, 10 MG PO TID for muscle sstiffness, #30 TAB 2 Refills Prov:MICHAEL MILLER Sr., MD 10/14/22 Meloxicam (Meloxicam) 7.5 Mg Tablet, 7.5 MG PO DAILY, #30 TAB 2 Refills Prov:MICHAEL MILLER Sr., MD 10/14/22 Past Medical History Past Medical History: Cancer, Diabetes-Type II, Hypothyroid Medical History Other: DEGENERATIVE DISK DISEASE Past Surgical History: Appendectomy, Cholecystectomy, BTL, Surgical History Other: THYROIDECTOMY, LAMINECTOMY Female( History) LMP: Jan 03, 2025 ROS Dictation CONSTITUTIONAL: No chills, no fever, no weakness, no diaphoresis, no malaise. HEAD/FACE: No signs of trauma. EENT: No eye pain, no blurred vision, no tearing, no double vision, no ear pain, no ear discharge, no nose pain, no nasal congestion, no throat pain, no throat swelling, no mouth pain. RESPIRATORY: No cough, no orthopnea, no SOB, no stridor, no wheezing. CARDIOVASCULAR: No chest pain, no edema, no palpitations, no syncope. GASTROINTESTINAL/ABDOMINAL: No abdominal pain, no constipation, no diarrhea, no nausea, no vomiting. GENITOURINARY: Dysuria, vaginal irritation with the urinating MUSCULOSKELETAL: No back pain, no gout, no joint pain, no joint swelling, no muscle pain, no muscle stiffness, no neck pain. INTEGUMENTARY: No change in color, no change in hair/nails, no dryness, no lesion, no lumps, no rash. NEUROLOGICAL/PSYCH: No anxiety, not depressed, no emotional problem, no headache, no numbness, no pre-existing deficit, no history of seizures, no tremors, no weakness. HEMATOLOGIC/LYMPHATIC: Not anemic, no history of blood clots, no apparent bleeding, no bruising, glands not swollen. All Systems Negative, Except as Noted. Physical Exam Physical Exam Dictation VITAL SIGNS: Reviewed. GENERAL APPEARANCE: Alert, oriented x3, no acute distress, obese. HEAD AND FACE: Non-traumatic. EYES: PERRL, pink conjunctivas, eyelid no trauma, anterior chamber clear. EARS: Pinnas intact and no signs of trauma or erythema. Ear canals clear and no discharge. TMs no erythema. NOSE: No discharge, no bleeding. OROPHARYNX: Mouth normal, teeth no caries, tongue pink. Pharynx clear, no erythema. Tonsils no exudates, no abscesses noted. Mucous membrane moist. NECK: Supple, non-tender, no thyromegaly, no masses, no JVD, no bruits. BREAST: Deferred. CHEST: No tenderness, no crepitus, no paradoxical movement, no retractions. LUNGS: Clear, well-ventilated, symmetric, no rales, no wheezing, no rhonchi, no stridor, good breath sounds bilaterally. HEART: Regular rate, regular rhythm, no murmur, no gallops. VASCULAR: No peripheral edema. ABDOMEN: Soft, positive bowel sounds, nondistended, no guarding, nontender, no rebound, no masses no hepatomegaly, no splenomegaly, no Rodgers's sign, no h ernias. RECTAL: Deferred. GENITAL: Deferred. NEUROLOGICAL: Normal speech, gross motor function intact, gross sensory functi on intact. MUSCULOSKELETAL: Neck nontender, full range of motion, back nontender, full range of motion. EXTREMITIES: Nontender, full range of motion. SKIN: Color pink, dry, no turgor, no rash, no lacerations, no abrasions, no contusions. LYMPHATICS: Deferred. Results Laboratory and Microbiology Lab and Micro Result Laboratory Tests Test 01/06/25 09:42 01/06/25 09:52 Urine Color LIGHT-YELLOW (YELLOW) Urine Appearance CLEAR (CLEAR) Urine pH 5.5 (5.0-8.0) Urine Specific [place] 1.011 (1.001-1.031) Urine Protein NEGATIVE mg/dL (NEGATIVE) Urine Glucose (UA) NEGATIVE mg/dL (NEGATIVE) Urine Ketones NEGATIVE mg/dL (NEGATIVE) Urine Occult Blood SMALL (NEGATIVE) H Urine Nitrate NEGATIVE (NEGATIVE) Urine Bilirubin NEGATIVE mg/dL (NEGATIVE) Urine Urobilinogen 0.2 mg/dL (0.2-1.0) Urine Leukocyte Esterase 75 Arnold/uL (NEGATIVE) H Urine RBC 2-5 /HPF (0-1) H Urine WBC 6-10 /HPF (0-1) H Urine Squamous Epithelial Cells RARE /HPF (0-2) Urine Bacteria None /HPF (None Seen) Human Chorionic Gonadotropin, Quant 0 mIU/mL (0-5) Whole Blood Glucose 138 MG/DL (70-110) H Bedside Glucose Comment Notified Nurse MDM CC: Vaginal pain, dysuria Historian: Patient Comorbidities: Obesity Limitations by social determinants of health: None Differential diagnosis: STI, UTI, vaginitis, other Vitals are stable Clinical exam is unremarkable. Pelvic exam is unremarkable Urinalysis does show leukocyte esterase Cervical swabs/microscopy shows Trichomonas, possibly the source of the infecti on. We will discharge with Macrobid and Flagyl. Patient agrees. ED Course Orders Procedure Category Date Status Time Hcg,Quantitative LAB 01/06/25 Complete 09:25 Urinalysis Profile LAB 01/06/25 Complete 09:25 Bedside Glucose CPOE 01/06/25 Transmitted Fingerstick 09:39 Culture Urine LYDIA 01/06/25 In Process 09:58 Wet Prep LYDIA 01/06/25 Complete 10:23 Chlamydia & Gc Pcr LYDIA 01/06/25 In Process 10:54 Vital Signs Date Time Temp Pulse Resp B/P (MAP) Pulse Ox O2 Delivery O2 Flow Rate FiO2 01/06/25 12:05 98.1 80 16 137/82 98 Room Air* 0 21 01/06/25 10:52 98.1 85 18 151/87 98 Room Air* 0 21 01/06/25 09:17 98.1 90 18 158/92 98 Room Air 0 DX & DISP Disposition: Discharge Departure Impression: Primary Impression: Trichomonal vaginitis Additional Impression: UTI (urinary tract infection) Condition: Stable Scripts Nitrofurantoin/Nitrofuran Mac (Macrobid) 100 Mg Cap 1 CAP PO BID for 7 Days, #14 CAP 0 Refills Prov: AMOS FERRARO DO 01/06/25 Metronidazole (Metronidazole) 500 Mg Tablet 1 TAB PO BID for 7 Days, #14 TAB 0 Refills Prov: AMOS FERRARO DO 01/06/25 Additional Instructions: The urinalysis does show some leukocyte esterase, which is a sign of inflammation. You may have a mild urinary tract infection. The microscopy study does show Trichomonas. This may be causing your symptoms. I have given you antibiotics for both. Take as prescribed. Avoid alcohol while taking the antibiotics. As we discussed, I recommend that you follow up with the project manager finance. You may need further studies. You may also need a full STI panel. Please return to the emergency department as needed. Referrals: RYLEE HENNESSY (PCP) AMOS FERRARO DO Jan 06, 2025 10:38
[2025-01-06] MEDS ORDERED: METR-172 PO (11:58)
[2025-01-06] MEDS ORDERED: MACR100 PO (11:58)
[2025-01-06 12:05] VITALS: BP 137/82; PULSE 80; RESP 16; TEMP 98.1; O2SAT 98
== END 2025-01-06 12:08 | disposition home or self-care (01) ==
LOC: EDH 09:14
DX: A59.01 Trichomonal vulvovaginitis (principal); N39.0 Urinary tract infection, site not specified; E03.9 Hypothyroidism, unspecified; E11.9 Type 2 diabetes mellitus without complications; E66.9 Obesity, unspecified; Z68.38 Body mass index [BMI] 38.0-38.9, adult; Z79.899 Other long term (current) drug therapy; Z79.52 Long term (current) use of systemic steroids; Z79.1 Long term (current) use of non-steroidal anti-inflammatories (NSAID); Z90.49 Acquired absence of other specified parts of digestive tract; Z98.51 Tubal ligation status; Z90.89 Acquired absence of other organs
CPT/HCPCS: 36415; 81001; 82948; 84702; 87086; 87210; 87491; 87591; 99283